=== PATIENT | female | born 1965 | race Caucasian/White ===

== ENCOUNTER 2018-09-07 11:11 | Emergency (ER) | payer BC ==
--- NOTE | 2018-09-07 12:13 | ER Document Report ---
ED Medical Screen (RME) - General Chief Complaint: Insect Bite Stated Complaint: SPIDER BITE,SHORTNESS OF BREATH Time Seen by Provider: 09/07/18 12:05 TRAVEL OUTSIDE OF THE [place] IN LAST 30 DAYS: No - HPI Notes: 09/07/18 12:05 52-year-old female who was recently diagnosed with CHF back in January presents to the ED for complaints of shortness of breath as well as worsening infection from a spider bite. Patient states she woke up with had red dots on the right side of her face a week ago, suspects it was from a spider bite, Reports she went to for evaluatinon x 4 days ago, she was started on Keflex. states her symptoms have become progressively worse due increased swelling of face and lymph node enlargement. She noticed today that she has become more short of breath. Patient does wear supplemental oxygen ( only with exercise), however she is requiring to wear it constantly today. Reports she did have a fever last night. Patient's primary care as well as her software technician are at [facility] in [place]. I have greeted and performed a rapid initial assessment of this patient. A comprehensive ED assessment and evaluation of the patient, analysis of test results and completion of medical decision making process will be conducted by an additional ED providers. - Related Data Allergies/Adverse Reactions: Sulfa (Sulfonamide Antibiotics) Allergy (Verified 09/07/18 11:25) Physical Exam - Vital signs Vitals: Temp Pulse Resp BP Pulse Ox 98.1 F 106 H 16 108/75 98 09/07/18 11:25 09/07/18 11:25 09/07/18 11:25 09/07/18 11:25 09/07/18 11:25 Course - Vital Signs Vital signs: Temp Pulse Resp BP Pulse Ox 98.1 F 106 H 16 108/75 98 09/07/18 11:25 09/07/18 11:25 09/07/18 11:25 09/07/18 11:25 09/07/18 11:25
--- NOTE | 2018-09-07 12:53 | RADIOLOGY REPORT (SQ) ---
EXAM DESCRIPTION: CHEST 2 VIEWS COMPLETED DATE/TIME: 09/07/2018 12:44 pm REASON FOR STUDY: sob with chf COMPARISON: None. EXAM PARAMETERS: NUMBER OF VIEWS: two views TECHNIQUE: Digital Frontal and Lateral radiographic views of the chest acquired. RADIATION DOSE: NA LIMITATIONS: none FINDINGS: LUNGS AND PLEURA: No opacities, masses or pneumothorax. No pleural effusion. MEDIASTINUM AND HILAR STRUCTURES: No masses or contour abnormalities. HEART AND VASCULAR STRUCTURES: Heart normal size. No evidence for failure. BONES: No acute findings. HARDWARE: None in the chest. OTHER: No other significant finding. IMPRESSION: NO ACUTE RADIOGRAPHIC FINDING IN THE CHEST. TECHNICAL DOCUMENTATION: JOB ID: [id number] [employer]fer- All Rights Reserved Reading location - IP/workstation name: [email or web address]
[2018-09-07 13:26] LABS: ABSOLUTE BASOPHILS # (AUTO) 0.1 10^3/uL (0.0-0.2); ABSOLUTE EOSINOPHILS # (AUTO) 0.1 10^3/uL (0.0-0.6); ABSOLUTE LYMPHOCYTES (AUTO) 0.7 10^3/uL (0.5-4.7); ABSOLUTE MONOCYTES (AUTO) 0.4 10^3/uL (0.1-1.4); ABSOLUTE NEUT (AUTO) 4.5 10^3/uL (1.7-8.2); BASOPHILS % (AUTO) 1.2 % (0-2); EOSINOPHILS % (AUTO) 1.3 % (0-6); HEMATOCRIT 39.1 % (36.0-47.0); HEMOGLOBIN 13.1 g/dL (12.0-15.5); LYMPHOCYTES % (AUTO) 12.1 % (13-45); MEAN CORPUSCULAR HEMOGLOBIN 28.1 pg (27.0-33.4); MEAN CORPUSCULAR HGB CONC 33.5 g/dL (32.0-36.0); MEAN CORPUSCULAR VOLUME 84 fl (80-97); MONOCYTES % (AUTO) 7.5 % (3-13); PLATELET COUNT 179 10^3/uL (150-450); RED BLOOD COUNT 4.64 10^6/uL (3.72-5.28); RED CELL DISTRIBUTION WIDTH 14.4 % (11.5-14.0); SEGMENTED NEUTROPHILS % (AUTO) 77.9 % (42-78); TOTAL CELLS COUNTED % (AUTO) 100 %; WHITE BLOOD COUNT 5.8 10^3/uL (4.0-10.5)
[2018-09-07 14:00] LABS: ALANINE AMINOTRANSFERASE 38 U/L (9-52); ALBUMIN 4.1 g/dL (3.5-5.0); ALKALINE PHOSPHATASE 87 U/L (38-126); ANION GAP 8 (5-19); ASPARTATE AMINO TRANSFERASE 39 U/L (14-36); BILIRUBIN,DIRECT 0.3 mg/dL (0.0-0.4); BILIRUBIN,TOTAL 0.8 mg/dL (0.2-1.3); BLOOD UREA NITROGEN 11 mg/dL (7-20); CALCIUM 9.1 mg/dL (8.4-10.2); CARBON DIOXIDE 31 mmol/L (22-30); CHLORIDE 101 mmol/L (98-107); CREATINE KINASE 85 U/L (30-135); GLUCOSE 129 mg/dL (75-110); POTASSIUM 3.7 mmol/L (3.6-5.0); SODIUM 139.5 mmol/L (137-145); TOTAL PROTEIN 7.3 g/dL (6.3-8.2)
[2018-09-07 14:10] LABS: CREATINE KINASE MB 0.66 ng/mL (<4.55); TROPONIN I 0.03 ng/mL
--- NOTE | 2018-09-07 14:24 | ER Document Report ---
ED Skin Rash/Insect Bite/Abscs - General Chief Complaint: Insect Bite Stated Complaint: SPIDER BITE,SHORTNESS OF BREATH Time Seen by Provider: 09/07/18 12:05 Mode of Arrival: Ambulatory Information source: Patient Notes: Patient is a 52-year-old female who presents to the ER today for possible spider bite to the right side of the face that occurred a few days ago, patient states she went to urgent care yesterday and got put on Keflex because it was a little red, states today she is got some enlarged lymph nodes, worse to the right side of her face and neck with fever of 101 that was last night and generalized body aches, increased shortness of breath. Patient has a history of congestive heart failure and is on oxygen but states that she only has to wear it at night and when she is exercising, states that since feeling increased shortness of breath she has been wearing it all the time. Patient denies any recent cough, congestion, burning with urination, nausea, vomiting or diarrhea. She denies any drainage from the spider bite on her face. TRAVEL OUTSIDE OF THE [place] IN LAST 30 DAYS: No - Related Data Allergies/Adverse Reactions: Sulfa (Sulfonamide Antibiotics) Allergy (Verified 09/07/18 11:25) Past Medical History - General Information source: Patient - Social History Smoking Status: Never Smoker Family History: Reviewed & Not Pertinent Patient has suicidal ideation: No Patient has homicidal ideation: No - Past Medical History Cardiac Medical History: Reports: Hx Congestive Heart Failure, Hx Hypertension Renal/ Medical History: Denies: Hx Peritoneal Dialysis Past Surgical History: Reports: Hx Abdominal Surgery - gastric band, Hx Orthopedic Surgery - back surgery, Hx Tonsillectomy Review of Systems - Review of Systems Constitutional: See HPI EENT: See HPI Cardiovascular: No symptoms reported Respiratory: See HPI Gastrointestinal: No symptoms reported Genitourinary: No symptoms reported Female Genitourinary: No symptoms reported Musculoskeletal: See HPI Skin: No symptoms reported Hematologic/Lymphatic: No symptoms reported Neurological/Psychological: No symptoms reported Physical Exam - Vital signs Vitals: Temp Pulse Resp BP Pulse Ox 98.1 F 106 H 16 108/75 98 09/07/18 11:25 09/07/18 11:25 09/07/18 11:25 09/07/18 11:25 09/07/18 11:25 - Notes Notes: PHYSICAL EXAMINATION: GENERAL: Well-appearing and in no acute distress. HEAD: Atraumatic, normocephalic. EYES: Pupils equal round and reactive to light, extraocular movements intact, sclera anicteric, conjunctiva are normal. ENT: ear canals without erythema or foreign body, TMs pearly cortez with good bony landmarks, nares patent, oropharynx clear without exudates. Moist mucous membranes. NECK: Normal range of motion, bilateral cervical lymphadenopathy, right greater than left, tender, no erythema LUNGS: On nasal cannula oxygen, but CTAB and equal. No wheezes rales or rhonchi. HEART: Regular rate and rhythm without murmurs ABDOMEN: Soft, no tenderness. No guarding, no rebound BACK: no vertebral tenderness, normal ROM GI/: no CVA tenderness EXTREMITIES: Normal range of motion, no pitting edema. No cyanosis. NEUROLOGICAL: Cranial nerves grossly intact. Normal sensory/motor exams. PSYCH: Normal mood, normal affect. SKIN: Warm, Dry, normal turgor, erythematous, blistered rash without fluctuance or induration to the right side of the face just lateral to the right eye, no drainage, nontender Course - Re-evaluation Re-evalutation: 09/07/18 17:59 Patient is afebrile here, normal vital signs, even on room air in triage she was not hypoxic, however patient feels more comfortable on oxygen, patient has no rails or rhonchi on exam, chest x-ray negative however her BNP is elevated. I do not suspect that her shortness of breath is actually coming from being fluid overloaded. Patient does have a worsening rash to the right side of her face has been on Keflex times 2 days. I will add clindamycin at this time. Patient has oxygen at home I advised her to continue to use around the clock until she feels better, also following up with her primary care provider. - Vital Signs Vital signs: Temp Pulse Resp BP Pulse Ox 99.8 F 96 18 214/108 H 97 09/07/18 18:26 09/07/18 18:26 09/07/18 18:26 09/07/18 18:26 09/07/18 18:26 - Laboratory Result Diagrams: 09/07/18 12:52 09/07/18 12:52 Laboratory results interpreted by me: 09/07/18 09/07/18 09/07/18 12:52 12:52 12:52 RDW 14.4 H Lymphocytes % 12.1 L Carbon Dioxide 31 H Glucose 129 H AST 39 H NT-Pro-B Natriuret Pep 1450 H Discharge - Discharge Clinical Impression: Cellulitis, face, LAD (lymphadenopathy) of right cervical region Condition: Stable Disposition: HOME, SELF-CARE Additional Instructions: Return immediately for any new or worsening symptoms. Follow up with primary care provider, call tomorrow to make followup appointment. Prescriptions: Clindamycin HCl 300 mg PO TID #30 capsule
[2018-09-07] MEDS ORDERED: MORPHINE SULFATE 10 MG/ML INJ IV ONE (16:44)
[2018-09-07 16:48] LABS: APPEARANCE,URINE CLEAR; BILIRUBIN,URINE NEGATIVE (NEGATIVE); COLOR,URINE YELLOW; GLUCOSE, URINE NEGATIVE (NEGATIVE); KETONES,URINE NEGATIVE (NEGATIVE); LEUKOCYTE ESTERASE,URINE NEGATIVE (NEGATIVE); NITRITE,URINE NEGATIVE (NEGATIVE); PROTEIN,URINE NEGATIVE (NEGATIVE); URINE SPECIFIC GRAVITY 1.012; UROBILINOGEN,URINE NEGATIVE mg/dL (<2.0)
[2018-09-07] MEDS ORDERED: CLINDAMYCIN 600 MG/D5W RTU 600 MG/50 ML RTUPB IV SCH (17:00)
[2018-09-07 18:33] VITALS: BP 214/108
--- NOTE | 2018-09-07 21:53 | EKG REPORT ---
SEVERITY:- ABNORMAL ECG - SINUS RHYTHM VENTRICULAR PREMATURE COMPLEX PROBABLE LEFT ATRIAL ABNORMALITY LVH WITH IVCD, LAD AND SECONDARY REPOL ABNRM : Confirmed by: Maryam Al MD 07-Sep-2018 21:52:22
== END 2018-09-07 18:48 | disposition home or self-care (01) ==
LOC: ER 11:11
DX: L03.211 Cellulitis of face (principal); R59.9 Enlarged lymph nodes, unspecified; S00.86XA Insect bite (nonvenomous) of other part of head, initial encounter; R06.02 Shortness of breath; R50.9 Fever, unspecified; W57.XXXA Bitten or stung by nonvenomous insect and other nonvenomous arthropods, initial encounter; I50.9 Heart failure, unspecified; I11.0 Hypertensive heart disease with heart failure; Z99.81 Dependence on supplemental oxygen
CPT/HCPCS: 93005; 99283; 96375; 96365; 36415; 87040; 82553; 82550; 83605; 85025; 80053; 81001; 84484; 83880; 71046; 93010; J2270